=== PATIENT | male | born 1960 | race Caucasian/White ===

== ENCOUNTER → 2017-06-21 16:10 | Outpatient (CLI) | payer OTHER, SELFPAY ==
--- NOTE | 2017-06-21 16:14 | US_ITS ---
STUDY: RENAL ULTRASOUND - COMPLETE REASON FOR EXAM: Male, 56 years old. Proteinuria. TECHNIQUE: Ultrasound evaluation of the kidneys was performed with real-time and static muller-scale imaging. COMPARISON: None. FINDINGS: RIGHT KIDNEY: Normal location of the right kidney, which is normal in size. The right kidney measures 11.7 cm x 6 cm x 6.8 cm. There is a normal cortex of the right kidney. The renal cortex measures 2.0 cm. There is a 3 cm x 2.5 cm x 2.7 cm cyst. There are no right renal calculi. There is no right hydronephrosis. DISTAL RIGHT URETER: There is non-visualization of the distal right ureter. There is no demonstrated right ureterovesical junction calculus. There is a visualized right ureteral jet. LEFT KIDNEY: Normal location of the left kidney, which is normal in size. The left kidney measures 12.1 cm x 6.1 cm x 5.6 cm. There is a normal cortex of the left kidney. The renal cortex measures 1.8 cm. There is no left renal mass or cyst. There are no left renal calculi. There is no left hydronephrosis. DISTAL LEFT URETER: There is non-visualization of the distal left ureter. There is no demonstrated left ureterovesical junction calculus. There is a visualized left ureteral jet. BLADDER: The distended urinary bladder has a volume of 500 ml. The empty urinary bladder has a volume of 9.9 ml. There is a normal wall thickness of the distended urinary bladder. There is no demonstrated mass within the urinary bladder. There are no demonstrated bladder calculi. US/Kidney and Bladder IMPRESSION: Right renal cyst. Electronically Signed: Corey Arevalo MD at 9:21 EDT Tel [phone], Service support ,
== END ==
PROVIDERS: Family Provider Family Medicine; PCP Family Medicine; Visit Provider Family Medicine
DX: R80.9 Proteinuria, unspecified (principal)
CPT/HCPCS: 76770

== ENCOUNTER → 2017-11-28 09:00 | Outpatient (CLI) | payer OTHER, SELFPAY ==
--- NOTE | 2017-11-28 09:15 | RAD_ITS ---
STUDY: AIR-CONTRAST UPPER GI SERIES. REASON FOR EXAM: Male, 57 years old. Burning sensation and pressure in the epigastric region following ingestion of food. FLUOROSCOPY TIME (if supplied): (1:20) minutes/seconds. 32 spot images were obtained. TECHNIQUE: The patient ingested barium. Multiple images of the esophagus, stomach and duodenum were obtained. COMPARISON: None. FINDINGS: The esophagus is unremarkable. There is no evidence of a obstruction. No mass lesion is seen. There is no evidence of gastroesophageal reflux. The stomach and duodenum are unremarkable. There is no evidence of ulceration. No mass lesion is present. RAD/Upper GI Series Only IMPRESSION: Unremarkable air contrast upper GI series. Electronically Signed: Corey Arevalo MD at 11:16 EDT Tel [phone], Service support ,
== END ==
PROVIDERS: Family Provider Family Medicine; PCP Family Medicine; Referring Provider Family Medicine; Visit Provider Family Medicine
DX: R10.9 Unspecified abdominal pain (principal)
CPT/HCPCS: 74246

== ENCOUNTER → 2017-11-30 08:15 | Outpatient (CLI) | payer OTHER, SELFPAY ==
--- NOTE | 2017-11-30 08:19 | US_ITS ---
STUDY: ABDOMINAL ULTRASOUND - RIGHT UPPER QUADRANT REASON FOR VISIT: Male, 57 years old. Abdominal pain. TECHNIQUE: Ultrasound evaluation of the right upper quadrant was performed with real-time and static parish-scale imaging. TECHNICAL QUALITY: Adequate. COMPARISON: None. FINDINGS: Liver: The liver measures 15.8 cm. There is normal echogenicity of the liver. The bile ducts are within normal limits. There is hepatic color flow. The direction of portal flow is hepatopetal. There is no demonstrated mass lesion. Gallbladder: Normal distended gallbladder. The gallbladder wall measures 2.8 mm. There is a negative sonographic Munroe's sign. There is no pericholecystic fluid. There are no gallstones. Common Bile Duct (C.B.D.): The common bile duct measures 4.8 mm. Pancreas: Normal size of the head, body and tail of the pancreas. There is normal echogenicity of the pancreas. There is no demonstrated pancreatic mass or cyst. Right Kidney: Normal size of the right kidney. The right kidney measures 12.3 cm. Normal renal cortex. The right cortex measures 1.8 cm. There is a 3 cm cyst. There is no right hydronephrosis. US/Gallbladder IMPRESSION: Normal right upper quadrant ultrasound examination. Electronically Signed: Tunde Miller MD at 17:10 EDT , Service support ,
== END ==
PROVIDERS: Family Provider Family Medicine; PCP Family Medicine; Referring Provider Family Medicine; Visit Provider Family Medicine
DX: R10.9 Unspecified abdominal pain (principal)
CPT/HCPCS: 76705

== ENCOUNTER → 2017-12-24 10:16 | Outpatient (CLI) | payer OTHER, SELFPAY ==
--- NOTE | 2017-12-24 10:19 | NM_ITS ---
CLINICAL: 57-year-old male with reported history of abdominal pain. RADIONUCLIDE HEPATOBILIARY SCINTIGRAPHY COMPARISON: Abdominal ultrasound report 11/30/2017 FINDINGS: Following the intravenous administration of 5.4 mCi of 99m Tc Mebrofenin, hepatobiliary images reveal: 1. Relatively prompt and homogeneous radiopharmaceutical concentration is noted by a normal sized liver. No parenchymal defects are identified. 2. Gallbladder activity is identified at 15 minutes post radiopharmaceutical administration. 3. Small intestinal tract is not visualized during 60 minutes of pre-fatty meal sequential and image acquisition. Small bowel is defined following meal ingestion. 4. Washout of the radiopharmaceutical by the hepatic parenchyma appears qualitatively normal. The patient was administered a fatty meal (8 ounces Boost). The post fatty meal ingestion gallbladder ejection fraction calculated at 60 minutes following fatty meal administration was noted to be 35.0 % (normal greater than 30%). Duodenal-gastric reflux is demonstrated following the administration of the fatty meal. NM/Hepatobilliary Img w/Pharm Int IMPRESSION: 1. A gallbladder ejection fraction calculated to be greater than 30% following the administration of an ingested fatty meal makes the probability of functional hepatobiliary disease (gallbladder and/or sphincter of Oddi dyskinesia) and/or organic hepatobiliary disease (chronic acalculous cholecystitis and/or cystic duct syndrome) to be low. (Damion and Joey, J Nucl Med 43: 1603, 2002). 2. There is scintigraphic evidence of post fatty meal duodenal gastric reflux. Electronically Signed: Brayden Dubose DO at 23:42 EDT Tel , Service support ,
== END ==
PROVIDERS: Family Provider Family Medicine; PCP Family Medicine; Referring Provider Family Medicine; Visit Provider Family Medicine
DX: R10.9 Unspecified abdominal pain (principal)
CPT/HCPCS: 78227; A9537

== ENCOUNTER → 2018-01-11 06:58 | Outpatient (CLI) | payer OTHER, SELFPAY ==
--- NOTE | 2018-01-11 07:02 | CT_ITS ---
STUDY: CT ABDOMEN WITH CONTRAST REASON FOR EXAM: Male, 57 years old. Mid abdominal pain RADIATION DOSAGE (If Supplied By Facility): CTDIvol = ( 19.98 ) mGy, DLP = ( 844.69 ) mGycm TECHNIQUE: Transaxial images were obtained post I.V. administration of 100cc ml of Isovue 300 contrast, and oral contrast. Sagittal and coronal images were reconstructed. Individualized dose optimization techniques were used for this CT. COMPARISON: None. FINDINGS: The visualized lung bases are unremarkable. The visualized portions of the heart are within normal limits. Multiple liver cysts are noted the largest measures 1.3 cm. Normal gallbladder and extrahepatic biliary system. Normal spleen. Normal pancreas. Normal bilateral adrenal glands. There is a cyst in the right kidney measures 2.8 cm. Normal left kidney. Normal visualized stomach. Normal small intestine. Normal colon. The appendix is visualized and appears normal. Normal abdominal aorta. Normal inferior vena cava. Normal retroperitoneum. Normal abdominal wall. Multiple lytic lesions are seen in the lumbar spine the largest is at L3 measures approximately 2.8 cm suggesting multiple myeloma. CT/Abdomen WITH IV Contrast IMPRESSION: Multiple lytic lesions are seen in the lumbar spine the largest is at L3 measures approximately 2.8 cm suggesting multiple myeloma. N.B. : DAVE feldman, confirmed on 01/14/2018 23:23:58 (ET) that the referring physician received the results and did not require a verbal consultation. Electronically Signed: Tja Allen MD at 7:35 EST Tel , Service support ,
== END ==
PROVIDERS: Family Provider Family Medicine; PCP Family Medicine; Referring Provider Internal Medicine Gastroenterology; Visit Provider Internal Medicine Gastroenterology
DX: R10.9 Unspecified abdominal pain (principal)
CPT/HCPCS: 74160; Q9967

== ENCOUNTER → 2018-01-18 09:44 | Outpatient (CLI) | payer OTHER, SELFPAY ==
--- NOTE | 2018-01-18 10:45 | MRI_ITS ---
STUDY: MRI THORACIC SPINE WITH AND WITHOUT CONTRAST REASON FOR EXAM: Male, 57 years old. Abnormal findings on CT scan. The patient is complaining of right upper quadrant pain. On the CT abdomen and pelvis 01/11/2018, multiple lytic lesions were observed in the lumbar spine, the largest at the L3 level measuring 2.8 cm. TECHNIQUE: 10 ml of Gadavist was administered intravenously for the contrast portion of the examination. COMPARISON: None. FINDINGS: On review of CT abdomen dated 01/11/2018, lucent lesions are observed in the T12 and L3 vertebral bodies. These lesions exhibit lucency surrounding coarsened corduroy trabeculations, most characteristic of hemangioma. However, the lesion at L3 exhibited thinning and erosion of the posterior cortical wall of the vertebral body, and a focus of thinning and erosion of the inferior endplate. There is a tiny punched-out lucency at the base of the pedicle, left side, T8, another similar small punched-out focus at the base of the pedicle on the right at T11, and a punctate lucency within the pedicle and facet on the left at L1. A few tiny punched-out lucencies were also seen in the left-sided lower ribs, quite indistinct. A small punched-out lucency was also present in the left lateral aspect of the vertebral body at L5. On review of the MR lumbar spine performed today, there are corresponding enhancing lesions within the superior endplate of L5, within the largest lesion of L3, and the smaller lesion of L1. Consistent with malignancy. MRI THORACIC SPINE: Thoracic vertebral body height and alignment are normal. Slight scoliosis. Mild kyphosis of the upper thoracic spine. Minimal disc degenerative features. The paraspinous muscles appear normal. Prevertebral soft tissues appear normal. Evaluated portions of the mediastinum appear normal. Evaluated portions of the lungs are grossly clear. Spinal canal: Beginning at the level of T3 and extending to the level of T6, there is an enhancing extradural extra-axial mass lying posterior to the thecal sac against the posterior and left lateral mejias of the spinal canal. The mass measures up to 8.8 cm craniocaudal, 1.1 cm anterior-posterior, and 1.8 cm transverse. The mass contributes to moderate narrowing of the spinal canal, mildly compressing the thecal sac and displacing the thecal sac anteriorly. The mass surrounds the exiting nerve roots of the foramina partially at T3-T4, completely at C4-C5, partially at T5-T6. Posterior elements: There is extensive enhancement within the pedicles, lamina and spinous process at T4. There is enhancement of the tip of the T2 and T3 spinous processes, small areas of enhancement within the right T3 lamina and left T2 lamina. There is patchy enhancement within the pedicles and lamina and spinous process at T5, T6. There is patchy enhancement within the lamina and spinous processes at each level between T6 and T12. Vertebral bodies: There is diffuse abnormal enhancement throughout the T4, T5 and T6 vertebral bodies consistent with malignancy. There is mild patchy enhancement within the vertebral bodies including T1, T2, T3, and T7-T9. There is mild diffuse enhancement within the T10 vertebral body and involving the T10 pedicles, and lamina. There is a lytic lesion within T12 with a greatest dimension of approximately 2.2 x 2.5 x 2.6 cm containing coarsened trabeculations, partially eroding the posterior cortical wall and a small focus of the inferior endplate, exhibiting T1 hypointensity, T2 hyperintensity, and postcontrast enhancement. This is also consistent with malignancy but may be superimposed upon an underlying hemangioma. Thecal sac: There is no apparent edema or enhancement within the thecal sac. No apparent edema or enhancement of the thoracic spinal cord. Intervertebral discs: There is no abnormal edema or enhancement of the intervertebral disc spaces. There are only minimal disc degenerative features. MRI/Spine Thoracic W/WO Contrast IMPRESSION: 1. Enhancing mass along the posterior margin of the spinal canal, extra-axial, extradural, between T3 and T6, contributing to moderate spinal canal stenosis, effacing the paraspinal fluid within the thecal sac and effacing the thoracic cord at these levels. No evidence of cord myelopathy or intrathecal malignancy. 2. The mass of the spinal canal surrounds the exiting nerve roots into the foramina at each level, most prominently at T4-T5. The process also involves the proximal right rib and transverse process at T4. 3. Extensive malignancy involving the majority of the thoracic vertebral bodies and multiple levels of the posterior endplates. Electronically Signed: Brayden Tatum, at 13:05 EST Tel , Service support ,
--- NOTE | 2018-01-18 11:30 | MRI_ITS ---
STUDY: MRI LUMBAR SPINE WITH AND WITHOUT CONTRAST REASON FOR EXAM: Male, 57 years old. Abnormal findings on CT scan. Right upper quadrant pain. Suspected lumbar spinal malignancy. Extensive neoplasia identified in the MRI thoracic spine today. TECHNIQUE: Standardized fat and water weighted pulse sequences were obtained in the sagittal and axial planes. 10 ml of Gadavist contrast material was administered for the contrast portion of the examination. COMPARISON: None FINDINGS: Overview: Limited evaluation of the retroperitoneal and abdominal contents reveals no acute abnormalities. The psoas and paraspinous muscles are normal. Spinal canal and thecal sac contents including the conus medullaris and cauda equina appear normal from T11 through S2. Vertebral body height and alignment are normal with slight scoliosis and preserved lordosis. There is mild disc narrowing with disc degenerative signal at each level between T12 and L4, with no significant disc bulging. There is no apparent spinal canal or foraminal stenosis of the lumbar spine. There is mild multilevel lumbar facet arthropathy slightly more notable at L4-L5 and L3-L4. Vertebral bodies: T12, T2 hyperintense, T1 hypointense, diffusely enhancing coarsely trabeculated lytic lesion measuring up to 2.8 cm anterior-posterior, 1.9 cm craniocaudal. L3, T2 hyperintense, T1 hypointense diffusely enhancing coarsely trabeculated lytic lesion measuring up to 3 cm anterior-posterior, 4 cm transverse, and 3.1 cm anterior-posterior. There is further edema and enhancement at the margins of this lesion extending into the superior endplate. Patchy edema and enhancement within the pedicles at T12. Patchy edema and enhancement within the lamina and spinous process and left pedicle at T12. Lytic enhancing lesion within the pedicle and lamina on the left at L1. Edema and enhancement within the right-sided pedicle and lamina at L3. Minimal patchy edema and enhancement scattered within the body of L4. Oval region of edema and enhancement within the right anterior aspect of the superior half of the L5 vertebral body. Intervertebral discs: There is edema and enhancement centrally within the intervertebral disc, and of the superior aspect of the annulus, at L3-L4. MRI/Spine Lumbar W/WO Contrast IMPRESSION: Multilevel lesions with edema and enhancement of the vertebral bodies and posterior elements as described in detail above, in addition to edema and enhancement within the vertebral disc at L3-L4, consistent with malignancy. Mild lumbar spondylosis without stenosis. N.B. : The above information has been verbally conveyed by Brayden Tatum to KEVIN Jorgensen, on 01/18/2018 13:24:24 (ET). Electronically Signed: Brayden Tatum, at 13:15 EST Tel , Service support ,
== END ==
PROVIDERS: Family Provider Family Medicine; PCP Family Medicine; Referring Provider Internal Medicine Gastroenterology; Visit Provider Internal Medicine Gastroenterology
DX: M54.9 Dorsalgia, unspecified (principal); R93.89 Abnormal findings on diagnostic imaging of other specified body structures
CPT/HCPCS: 72157; 72158; A9585

== ENCOUNTER 2018-03-18 16:06 | Emergency (ER) | payer OTHER, SELFPAY ==
[2018-03-18 16:07] VITALS: BP 166/96; PULSE 87; RESP 17; TEMP 36.7; O2SAT 98; BMI 31.4
--- NOTE | 2018-03-18 16:29 | RAD_ITS ---
STUDY: X-RAY - UNILATERAL RIBS ( LEFT ) WITH CHEST REASON FOR EXAM: Male, 57 years old. Left-sided posterior rib pain The spine. History of multiple myeloma with radiation treatment one week ago. TECHNIQUE - RIBS: 4 view(s) of the ribs. TECHNIQUE - CHEST: PA chest COMPARISON: None. FINDINGS - RIBS: Normal visualized ribs without a demonstrated fracture. FINDINGS - CHEST: The lungs are clear and expanded. There is no demonstrated pleural abnormality. Normal size heart. Normal mediastinum and yessy. Normal visualized pulmonary arteries. Normal visualized aortic arch and descending thoracic aorta. Normal visualized thoracic spine. Normal visualized ribs, clavicles, and shoulders. There is no demonstrated abnormality of the visualized soft tissue structures of the upper abdomen. RAD/Ribs Uni Min 3V w/PA Chest IMPRESSION: RIBS: Normal x-ray examination of the ribs. CHEST: Normal x-ray examination of the chest. Electronically Signed: Brayden Tatum MD at 17:27 EST Tel , Service support ,
--- NOTE | 2018-03-18 16:29 | RAD_ITS ---
STUDY: X-RAY - LUMBAR SPINE REASON FOR EXAM: Male, 57 years old. Fall, lower back pain, history of multiple myeloma with radiation treatment one week ago. TECHNIQUE: 3 view(s) of the lumbar spine were obtained. COMPARISON: None FINDINGS: Slight scoliosis. Normal lumbar vertebral body height and alignment. Mild disc degenerative features are present at T12-L4. Normal appearance of the posterior elements. No visible lytic or blastic lesions. No acute intra-abdominal process is evident. RAD/Lumbar Spine 2 or 3 Views IMPRESSION: Mild scoliosis and mild spondylosis of the lumbar spine. No acute process is evident. Electronically Signed: Baryden Tatum MD at 17:26 EST Tel , Service support ,
--- NOTE | 2018-03-18 16:29 | RAD_ITS ---
STUDY: X-RAY - THORACIC SPINE REASON FOR EXAM: Male, 57 years old. Back pain, left-sided rib pain, history of multiple myeloma, radiation treatment one week ago. TECHNIQUE: 3 view(s) of the thoracic spine were obtained. COMPARISON: None. FINDINGS: Mild scoliosis. Normal vertebral body height and alignment. Minimal spondylosis. No visible lytic lesions. Normal cardiomediastinal silhouette. Evaluated portions of the lungs are clear. RAD/Thoracic Spine 3 Views IMPRESSION: Mild scoliosis, minimal spondylosis of the thoracic spine. Electronically Signed: Brayden Tatum MD at 17:25 EST Tel , Service support ,
--- NOTE | 2018-03-18 16:31 | ED.VISSUMM ---
- ER Visit Summary Date of Service: 03/18/18 Chief Complaint: Fall History of Present Illness: The patient is a 57 M presenting after fall. Patient states he slipped on ice and fell this morning. He states he twisted when he fell and landed on his right side. He initially felt okay and then later started having back spasms. He complains of right ankle pain. He has been able to ambulate with pain. He took ibuprofen prior to arrival. He did not hit his head or lose consciousness. He has a history of multiple myeloma and is undergoing radiation to his spine. He called his oncologist who advised him to come to the ED for x-rays. Physical Examination: Vitals are stable. Patient is afebrile. Alert no acute distress. HEENT exam is unremarkable. Neck is nontender Lungs are clear and equal bilaterally. Heart is regular rate and rhythm. Abdomen is soft nontender nondistended. Back: No midline tenderness, left paraspinal thoracic muscle tenderness Extremities right ankle swelling with diffuse tenderness. No fifth metatarsal tenderness. No proximal fibula tenderness. Skin is warm and dry. No focal neurologic deficit. Remainder of exam is unremarkable. Emergency Department Course and Treatment: Patient was given Valium p.o. Thoracic and lumbar x-ray shows no acute process. Right ankle x-ray shows no acute process. X-ray of the left ribs shows no acute process. Patient feels much improved in the ED. He was given incentive spirometer. He is given a prescription for Flexeril. Advised to follow-up with his primary care physician. Advised return to ED if worsening complaints. Disposition: Discharge home Impression: Status post mechanical fall, thoracic strain, right ankle sprain This note was generated with [employer] dictation software. It may contain incorrect words, spelling, and punctuation that were not noted in review of the chart prior to signing ED Disposition - Plan for ED Patient: Disposition: Home or Assisted Living Chief Complaint: Fall Instructions: ED Mechanical Fall Prescriptions: Cyclobenzaprine [Flexeril] 10 mg PO TID PRN #20 tablet PRN Reason: Muscle Spasm Referrals: Leonides Alvarado MD [Primary Care Provider] -
[2018-03-18] MEDS: diazePAM 5 MG Tablet PO (16:34)
--- NOTE | 2018-03-18 16:45 | RAD_ITS ---
STUDY: X-RAY - RIGHT ANKLE REASON FOR EXAM: Male, 57 years old. Fall, right ankle pain. History of multiple myeloma. TECHNIQUE: 3 view(s) of the ankle. COMPARISON: None. FINDINGS: Lateral ankle soft tissue swelling. No fracture or degenerative features. RAD/Ankle min 3 Views IMPRESSION: Lateral ankle soft tissue injury with no visible fracture. Electronically Signed: Bradyen Tatum MD at 17:24 EST Tel , Service support ,
--- NOTE | 2018-03-18 18:00 | ED.DEP ---
ED Disposition - Plan for ED Patient: Chief Complaint: Fall Instructions: ED Mechanical Fall Prescriptions: Cyclobenzaprine [Flexeril] 10 mg PO TID PRN #20 tablet PRN Reason: Muscle Spasm Referrals: Leonides Alvarado MD [Primary Care Provider] -
[2018-03-18 18:18] VITALS: BP 166/86; PULSE 85; RESP 17; O2SAT 99
== END 2018-03-18 18:21 | disposition home or self-care (01) ==
PROVIDERS: Emergency Provider Emergency Medicine; Family Provider Family Medicine; PCP Family Medicine
DX: S29.012A Strain of muscle and tendon of back wall of thorax, initial encounter (principal); S93.401A Sprain of unspecified ligament of right ankle, initial encounter; W00.0XXA Fall on same level due to ice and snow, initial encounter; Y92.9 Unspecified place or not applicable; Y99.9 Unspecified external cause status; C90.00 Multiple myeloma not having achieved remission
CPT/HCPCS: 71101; 72072; 72100; 73610; 99282

== ENCOUNTER 2018-05-06 23:08 | Emergency (ER) | payer OTHER, SELFPAY ==
[2018-05-06 23:10] VITALS: BP 129/74; PULSE 119; RESP 20; TEMP 38.2; O2SAT 95; BMI 34.0
--- NOTE | 2018-05-06 23:46 | EKG12_ITS ---
Test Reason : FEVER Blood Pressure : / mmHG Vent. Rate : 108 BPM Atrial Rate : 108 BPM P-R Int : 170 ms QRS Dur : 088 ms QT Int : 328 ms P-R-T Axes : 028 -07 037 degrees QTc Int : 439 ms Sinus tachycardia Minimal voltage criteria for LVH, may be normal variant Borderline ECG Confirmed by IVANIA HERNÁNDEZ ([id number]), editor publications GILBERT HOOK ([id number]) on 05/10/2018 1:24:23 PM Referred By: MARK Confirmed By:IVANIA HERNÁNDEZ
--- NOTE | 2018-05-06 23:52 | ED.RN ---
NO OLD EKGS IN MUSE
--- NOTE | 2018-05-07 | RAD_ITS ---
STUDY: X-RAY CHEST REASON FOR EXAM: Male, 57 years old. Fever and cough with multiple myeloma TECHNIQUE: Frontal and lateral views of the chest. COMPARISON: 03/18/2018 FINDINGS: Chronic interstitial lung changes without superimposed acute alveolar disease. Bibasilar atelectasis. There is no demonstrated pleural abnormality. Stable cardiomediastinal silhouette. Normal mediastinum and yessy. Normal visualized pulmonary arteries. Normal visualized aortic arch and descending thoracic aorta. Normal visualized thoracic spine. Normal visualized ribs, clavicles, and shoulders. There is no demonstrated abnormality of the visualized soft tissue structures of the upper abdomen. RAD/Chest PA and Lateral IMPRESSION: Chronic interstitial lung changes without superimposed acute alveolar disease. Bibasilar atelectasis. Electronically Signed: Moises Murdock MD at 0:54 EST Tel , Service support ,
[2018-05-07] MEDS: 0.9% Normal Saline 1,000 ML 150 ML IV (00:06)
[2018-05-07 00:09] VITALS: TEMP 37.3
[2018-05-07 00:21] LABS: Absolute Lymphocyte Count 2.83 X10^3/ul (0.83-4.51); Absolute Neutrophil Count 8.8 X10^3/uL (2.0-7.7); Basophil# 0.02 X10^3/uL; Basophil% 0.2 % (0-1); Eosinophil# 0.09 X10^3/uL; Eosinophils% 0.7 % (0-5); Hematocrit 38.9 % (40-54); Hemoglobin 12.6 g/dl (13.0-16.5); Lymphocyte # 2.83 X10^3/ul (4.0); Lymphocyte % 22.1 % (19-41); Mean Corp Hgb Conc 32.4 g/gl (32-36); Mean Corpuscular Hgb 29.9 pg (27.0-32.0); Mean Corpuscular Volume 92.4 fL (80-94); Mean Platelet Vol. 11.9 fl (6.2-12.0); Monocyte# 1.04 X10^3/uL; Monocyte% 8.1 % (0-10); Neutrophil # 8.76 X10^3/uL (2.7-7.7); Neutrophil % 68.6 % (47-70); Platelet Count 192 K/mm3 (150-450); RBC Distribution Width CV 14.9 % (11.6-14.6); RBC Distribution Width SD 50.6 fl (35.1-43.9); Red Blood Count 4.21 M/mm3 (4.6-6.2); White Blood Count 12.8 K/mm3 (4.4-11.0)
[2018-05-07 00:24] LABS: Differential Indicated SCAN CRITERIA MET; POSITIVE COUNT NO; POSITIVE DIFFERENTIAL NO; POSITIVE MORPHOLOGY YES
[2018-05-07 00:30] LABS: ALB/GLOB Ratio 1.1 RATIO (0.9-2.4); AST(SGOT) 27 U/L (15-37); Alanine Aminotransfer ALT/SGPT 57 U/L (16-61); Albumin, Serum 3.5 g/dL (3.2-5.0); Alkaline Phosphatase 90 U/L (45-117); Anion Gap 8 (5-15); BUN 14 mg/dL (7-18); BUN/Creat Ratio 14.6 RATIO (10-20); Calcium,Total 8.3 mg/dL (8.5-10.1); Chloride 102 mmol/L (98-107); Creatinine, Serum 0.96 mg/dL (0.70-1.30); EST Glomerular Filtration Rate 86 mL/min (>60); Est Glom Filt Rate - Afr Amer 104 mL/min (>60); Estimated Creatinine Clearance 98.71 ml/min; Globulin 3.1 g/dL (2.2-4.2); Glucose 111 mg/dL (74-106); Potassium 3.8 mmol/L (3.5-5.1); Protein, Total 6.6 g/dL (6.4-8.2); Sodium Level 136 mmol/L (136-145)
[2018-05-07 00:47] VITALS: BP 134/80; PULSE 105; RESP 18; TEMP 37.3; O2SAT 94
[2018-05-07 00:56] LABS: White Blood Cells 0 SEEN /hpf (0-5)
[2018-05-07 00:57] LABS: Reactive Lymphocyte 2+
--- NOTE | 2018-05-07 00:57 | ED.DCSUM_ITS ---
History of Present Illness Chief Complaint: Fever Informant: Patient Onset: Today Context: Gradual Onset Timing: Continuous Quality: 101 at home Current Severity: Moderate Maximum Severity: Moderate Worsened by: n/a Relieved by: n/a Associated Symptoms: mildly productive cough Narrative: Patient has had 2 chemotherapy treatments for multiple myeloma, his last treatment was around 3 days ago, he is also on oral chemotherapy daily at home. He developed a cough yesterday and a fever today. He called his oncologist and he was advised to come to the local ER for cultures. He sees an oncologist at [facility]. Other than mild malaise, he has no other symptoms. - Past Medical History (1) Multiple myeloma Status: Chronic Past Medical History - Allergies and Home Meds Allergies/Adverse Reactions: Allergies No Known Allergies Allergy (Verified 05/06/18 23:10) Primary Care Physician: Dr. Analisa [Other] Leonides Alvarado MD [Primary Care Provider] - Lives: Spouse/ Significant Other Smoking Status: Never smoker Review of Systems General: Reports: Fever, Malaise Eyes: Denies: Visual changes - bilaterally, Diplopia ENT: Denies: Rhinorrhea, Sore throat Cardiovascular: Denies: Chest pain, Palpitations Respiratory: Reports: Cough, Sputum. Denies: Dyspnea, Dyspnea on exertion Gastrointestinal: Denies: Abdominal pain, Nausea, Vomiting, Diarrhea, Melena, Hematochezia Genitourinary: Denies: Dysuria, Hematuria, Frequency Musculoskeletal: Reports: Back pain. Denies: Extremity Pain Skin: Reports: Rash - Asymptomatic red rash both legs 2-3 days. Denies: Wounds Neurological: Denies: Headache, Weakness, Numbness Physical Exam Vital Signs/Narrative: Vital Signs Temp Pulse Resp BP Pulse Ox 05/07/18 00:47 99.2 F H 105 H 18 134/80 H 94 05/07/18 00:09 99.2 F H 05/06/18 23:10 100.7 F H 119 H 20 H 129/74 H 95 Inital Vital Signs reviewed: Yes General: Well nourished, Well developed, No Acute Distress Head: Normocephalic, Atraumatic Eyes: Perrl, EOMI, - - Clear sclera ENT: Moist mucous membranes, No rhinorrhea Neck: Supple, Nontender Cardiovascular: Regular rate, Regular rhythm, No murmurs Respiratory: No distress, CTA bilaterally, Chest nontender Abdomen: Soft, Nontender, Nondistended, Normal bowel sounds Back: Nontender, Normal Inspection Extremities: Nontender, No edema Skin: Normal color, Rash - Petechial rash bilateral lower legs, not including feet. No other rashes or areas of petechiae. Neurological: Alert, Oriented x3, Cranial nerves II-XII grossly intact, Normal Strength, Normal Sensation Psychological: Normal affect, Normal Mood Diagnostic/Tx/Re-eval Impressions Chest X-Ray 05/07/18 00:00 IMPRESSION: Chronic interstitial lung changes without superimposed acute alveolar disease. Bibasilar atelectasis. Electronically Signed: Moises Murdock MD at 0:54 EST Tel , Service support , 05/07/18 00:00 Chest PA and Lateral [RAD] Stat 05/07/18 01:20 Mucosa - Nasopharyngeal Influenza Types A,B Direct FA ([place]) - Final -- NEGATIVE Laboratory Results 05/07/18 05/07/18 05/07/18 00:05 00:05 00:50 WBC 12.8 H RBC 4.21 L Hgb 12.6 L Hct 38.9 L MCV 92.4 MCH 29.9 MCHC 32.4 RDW 14.9 H RDW Differential 50.6 H Plt Count 192 MPV 11.9 Immature Gran % (Auto) 0.300 Neut % (Auto) 68.6 Lymph % (Auto) 22.1 [place] % (Auto) 8.1 Eos % (Auto) 0.7 Baso % (Auto) 0.2 Absolute Neuts (auto) 8.8 H Absolute Lymphs (auto) 2.83 Total Counted Not Reportable Reactive Lymphocytes 2+ Sodium 136 Potassium 3.8 Chloride 102 Carbon Dioxide 26.0 Anion Gap 8 BUN 14 Creatinine 0.96 Estim Creat Clear Calc 98.71 Est GFR (MDRD) Af Amer 104 Est GFR (MDRD) Non-Af 86 BUN/Creatinine Ratio 14.6 Glucose 111 H Calcium 8.3 L Total Bilirubin 0.90 AST 27 ALT 57 Alkaline Phosphatase 90 Total Protein 6.6 Albumin 3.5 Globulin 3.1 Albumin/Globulin Ratio 1.1 Urine Color Yellow Urine Clarity Clear Urine pH 6.0 Ur Specific [place] 1.015 Urine Protein Negative Urine Glucose (UA) Normal Urine Ketones Negative Urine Occult Blood 10 H Urine Nitrite Negative Urine Bilirubin Negative Urine Urobilinogen Normal Ur Leukocyte Esterase Negative Urine RBC 0-5 SEEN Urine WBC 0 SEEN Ur Squamous Epith Cells 0-5 SEEN Urine Bacteria RARE Urine Mucus 1+ - Medical Decision Making Workup shows slightly elevated white blood count with 2+ reactive lymphocytes, certainly no neutropenia. Very reassuring. The differential was actually fairly normal. Platelets are not low despite the petechiae on his legs. Unknown if these could be a side effect from his chemotherapy. He is not bleeding from anywhere, and his vital signs have been stable. Influenza is negative, chest x-ray shows no pneumonia. Given his immunocompromised state, I think it would be reasonable to put him on a broad-spectrum antibiotic such as a Z-Benjamin. Discussed with Dr. Jayne Stuart, the oncologist on-call for Dr. Hauser, his oncologist at [facility], she is in agreement with this and discharged home with close outpatient follow-up. She advises that he hold his Revlimid oral chemotherapy until he discusses w/ his oncologist tomorrow or the next day. ED Disposition - Plan for ED Patient: Disposition: Home or Assisted Living Diagnosis: Acute bronchitis, Immunocompromised state Instructions: Acute Bronchitis Prescriptions: Azithromycin 250 mg PO DAILY #4 tab Referrals: Leonides Alvarado MD [Primary Care Provider] - Dr. Analisa [Other] (Call tomorrow to discuss further treatment this week) Additional Instructions: Discontinue your Revlimid until you discuss with your oncologist this week.
[2018-05-07 00:58] LABS: Color, Urine Yellow (Yellow); Glucose, Dipstick Normal (Normal); Ketone-Dipstick Negative (Negative); Leukocyte Esterase-Dipstick Negative /ul (Negative); Nitrite-Dipstick Negative (Negative); Occult Blood-Urine 10 /ul (Negative); Protein-Dipstick Negative (Negative); Specific Gravity, Urine 1.015 (1.002-1.030); Urine Bilirubin Dipstick Negative (Negative); Urine Clarity Clear (Clear); Urine Urobilinogen Normal (Normal)
[2018-05-07 01:07] LABS: Bacteria RARE /hpf (None Seen); Mucous, Urine 1+ /hpf (<or=2+); Red Blood Cells-Urine 0-5 SEEN /hpf (0-5); Squamous Epithelial Cells - UA 0-5 SEEN /hpf (0-5)
[2018-05-07] MEDS: Acetaminophen 325 MG Tablet 650 MG PO (01:24)
--- NOTE | 2018-05-07 02:10 | ED.RN ---
Dr. Funes states pt is removed from neutropenic precautions. instructional support specialist notified.
--- NOTE | 2018-05-07 03:02 | ED.RN ---
CALLED [facility] PER REQUEST OF DR FLORES TO CHECK THE STATUS OF A CALL BACK. PER [facility], THEY HAVE PAGED THE IMPORT MANAGER SEVERAL TIMES AND ARE STILL WAITING ON A CALL BACK.
[2018-05-07] MEDS: Azithromycin 250 MG Tablet 500 MG PO (03:24)
[2018-05-07 03:30] VITALS: BP 117/72; PULSE 91; RESP 18; TEMP 36.9; O2SAT 95
== END 2018-05-07 03:32 | disposition home or self-care (01) ==
PROVIDERS: Emergency Provider Emergency Medicine; Family Provider Family Medicine; PCP Family Medicine
DX: J20.9 Acute bronchitis, unspecified (principal); D89.9 Disorder involving the immune mechanism, unspecified; J98.11 Atelectasis; C90.00 Multiple myeloma not having achieved remission
CPT/HCPCS: 36415; 71046; 80053; 81001; 85025; 87040; 87086; 87804; 93005; 96360; 96361; 99284; J7030; A4216

== ENCOUNTER → 2020-09-01 12:00 | Outpatient (CLI) | payer OTHER, SELFPAY ==
[2020-09-01 05:41] VITALS: BMI 34.0
--- NOTE | 2020-09-01 12:00 | LES_PTH ---
PATIENT: HARISH LARA LOC: [facility] U#:[id number] AGE/SX: 64/M ROOM: RE09/01/[address]: Dr. Yong Joseph MD : 1960 BED: DIS: SPEC #: [id number] RECD: 09/01/20 15:12 STATUS: HERMELINDA BERNARDO #: [id number] MALCOM: 09/01/20 12:[address]: Yong Joseph DEPT: SURGICAL PATHOLOGY RECD BY: Madelyn Rios ENTERED: 09/02/20 11:28 SP TYPE: Lesion OTHR DR: Dr. Leonides Alvarado MD Tissues: Skin of forehead Procedures: Surgery Specimen Level IV HEADER OPERATION: Excision forehead lesion PRE-OP DIAGNOSIS: Skin lesion of face TISSUE SUBMITTED: Forehead tissue MICROSCOPIC DIAGNOSIS Skin lesion of forehead, excision: Benign keratosis with associated capillary hemangioma. Hyperkeratosis, parakeratosis and mild solar elastosis. No evidence of malignancy. AM:brittany 09/03/2020 COMMENT Case has been reviewed in consultation with Dr. Cardoza who concurs with the above diagnosis. IDC:SJ MICROSCOPIC DESCRIPTION Slides are reviewed. GROSS DESCRIPTION Received in fixative is one container labeled with the patient's name and designated forehead. The specimen consists of a piece of atkins-white skin ellipse measuring 3 x 1.5 cm and up to 0.4 cm in thickness. The specimen is inked, serially sectioned and submitted entirely in two cassettes. Cassette 1 also contains the tips of skin ellipse. / JAMEEL:brittany 09/02/20 TC:5 CPT: 85170
== END ==
PROVIDERS: PCP Family Medicine; Referring Provider Surgery; Visit Provider Surgery
DX: L85.9 Epidermal thickening, unspecified (principal); L57.8 Other skin changes due to chronic exposure to nonionizing radiation
CPT/HCPCS: 88305

== ENCOUNTER 2020-09-11 09:18 | Emergency (ER) | payer OTHER, SELFPAY ==
[2020-09-01 05:41] VITALS: BMI 34.0
[2020-09-11 09:20] VITALS: BP 132/78; PULSE 90; RESP 16; TEMP 36.3; O2SAT 97; BMI 31.4
--- NOTE | 2020-09-11 09:54 | VDLE_ITS ---
Reason For Study: Swelling RIGHT CFV is compressible, spontaneous, phasic, competent and demonstrates normal augmentation. FV is compressible, spontaneous, phasic, competent and demonstrates normal augmentation. POP V is compressible, spontaneous, phasic, competent and demonstrates normal augmentation. T/P Trunk is compressible. PTV is compressible. RT PerV is compressible. Acute superficial vein thrombosis is noted in the right GSV from junction to prox calf and the SSV. Thrombus in the GSV is 1.5 cm from the junction, not extending into the CFV. Thrombus filled varicose veins noted in the posterior mid calf and mid-distal thigh. Procedure This is a venous duplex using B-mode, color flow and spectral Doppler. Exam performed portable in ED. A preliminary report was called and/or faxed to [facility]. VL/Venous Duplex US, Unilateral Interpretation Summary There is no evidence of right lower extremity deep vein thrombosis. Superficial thrombophlebitis right great saphenous vein from the proximal calf to within 1.5 cm of the saphe nofemoral junction. Superficial thrombophlebitis right small saphenous vein Superficial thrombophlebitis multiple varicosities posterior mid calf and mid d istal thigh Ordering Physician: Dani Puentes Referring Physician: Leonides Alvarado Performed By: Yessenia Arias RVT
--- NOTE | 2020-09-11 09:55 | EDS_ITS ---
HPI History of Present Illness Chief Complaint: Lower Extremity Injury Detail of Chief Complaint: Swelling to right lower extremity x1 week Informant: patient Narrative Narrative: Patient presents to the emergency department with lumps to his right leg that has had for over a week. Patient tells me that he had a lesion removed from his forehead a couple weeks ago and had to discontinue his aspirin for a time. Patient has history of multiple myeloma and is on Revlimid. Patient had his sutures removed from his forehead and mentioned the bumps on his legs but they did not think they were significant. Patient denies chest pain or fernanda rtness of breath. He has no history of PE or DVT. Patient has not had any significant trauma to his leg although he states he [place] recently and may have bumped the back of his leg some point. [facility] Medical History (Updated 09/11/20 @ 11:[address] Dani Puentes, ) Benign keratosis History of atrial fibrillation Home Medications aspirin 1 tab PO DAILY 05/07/18 [History Last Taken Unknown] calcium carbonate-vitamin D3 [Calcium 600 + Vit D Tablet] 1 ea PO DAILY 05/07/18 [History Last Taken Unknown] gabapentin 1 tab PO TID 05/07/18 [History Last Taken Unknown] lenalidomide [Revlimid] 10 mg PO QHS 09/11/20 [History Last Taken Unknown] rivaroxaban [Xarelto] 20 mg PO DAILY #14 tab 09/11/20 [Rx Last Taken Unknown] Allergy/AdvReac Type Severity Reaction Status Date / Time No Known Allergies Allergy Verified 09/11/20 09:19 Surgical History History of removal of Port-a-Cath Hx of local excision of skin lesion Hx of stem cell transplant Social History Smoking Status: Never smoker ROS ROS ED Constitutional Constitutional ED: Reports systems reviewed and no addt'l complaints, except as documented; Denies body ache(s), change in weight or chills Eyes Eyes: Denies acute decrease in peripheral vision, change in vision, double vision or loss of vision ENT ENT ED: Reports none; Denies ear pain, lip swelling, loss taste/smell, neck pain, otalgia or sore throat Cardiovascular Cardiovascular: Reports none; Denies abdominal pain, chest pain with activity, leg edema, lightheadedness, palpitations, rapid heart rate or syncope Respiratory/Chest Respiratory/Chest: Reports none; Denies change in mental status, dry cough, dyspnea, hemoptysis, shortness of breath at rest or shortness of breath with exertion Gastrointestinal Gastrointestinal: Reports none; Denies abdominal pain, change in stool character, diarrhea, hematemesis, hematochezia, melena, rectal bleeding or vomiting Genitourinary Genitourinary ED: Reports none; Denies abdominal discomfort, anuria, dysuria, genital pain or polyuria Musculoskeletal Musculoskeletal: Reports none and other Details: Right leg swelling ; Denies arthralgias, back pain, difficulty walking, extremity pain, muscle weakness or myalgias Integumentary Reports none; Denies abscess or rash Neurologic Neurologic: Reports none; Denies abnormal gait, confusion, focal weakness, frequent falls, headache(s), loss of vision, numbness, paresthesias, radicular pain, vertigo or weakness Psychiatric Psychiatric: Reports systems reviewed and no addt'l complaints, except as documented and none; Denies behavioral changes, confusion, difficulty concentrating, hallucinations, suicidal ideation, tactile hallucinations or visual hallucinations Endocrine Endocrinology: Denies none, cold intolerance, excessive sweating, fatigue or heat intolerance Hematologic/Lymphatic Hematologic/Lymphatic: Reports none; Denies anemia, easy bleeding or easy bruising Allergic/Immunologic Allergic/Immunologic ED: Denies as per HPI, none, lip swelling, mouth swelling, throat swelling, tongue swelling or hives EXAM Physical Exam Const Vital Signs: 09/11/20 09:20 Temperature 97.3 F L Temperature Source Temporal Pulse Rate 90 Respiratory Rate 16 Blood Pressure 132/78 H Blood Pressure Mean 96 Pulse Ox 97 Oxygen Delivery Method Room Air Positive well nourished and well developed General Appearance ED: well developed and NAD HEENT Reports TM's clear and moist mucous membranes normocephalic and atraumatic; Negative for trauma or tenderness Tympanic Membrane ED: Yes TM's clear Eyes PERRL and EOMs intact bilaterally General Eye ED: Negative for pale conjunctiva or scleral icterus Neck no lymphadenopathy, supple and no JVD General: Negative for tenderness Chest Wall inspection of chest normal and palpation of chest normal Chest: Negative for tenderness Resp normal respiratory effort and clear to auscultation bilaterally Effort and Inspection: Negative for respiratory distress or pain with movement Auscultation: Negative for rhonchi, wheezes or diminished lung sounds Cardio regular rate, regular rhythm, S1 normal heart sound, S2 normal heart sound and no murmurs Peripheral Pulses: pulses 2+ throughout GI normal to inspection, nondistended, normoactive bowel sounds, soft to palpation, non-tender, non-distended and no masses Back/Spine no CVA tenderness and no thoracic nor lumbar tenderness Extremity normal to inspection Extremity Narrative: Right leg-patient has ropes and cords palpated in the calf as well as thigh concerning for superficial phlebitis versus DVT. No significant swelling noted to the extremity. Pulses are normal. Skin is warm to the touch. General Extremety ED: Negative for edema General Extremity: Negative for edema Neuro oriented x3, CN's II-XII intact bilaterally, no sensory deficits noted and gait normal Sensorium / Orientation: awake, alert, oriented to person, oriented to place and oriented to time Motor Exam: strength 5/5 throughout and strength abnormal Psych mental status grossly normal Skin no rashes or lesions noted and no wounds MDM MDM MDM Narrative Medical decision making narrative: Patient noted on venous Doppler to have superficial phlebitis however there is clot about a centimeter and a half away from the deep common femoral vein. I discussed case with the vascular surgeon Dr. Yousif who asked that we start patient on Xarelto and he can see him in a couple of weeks and patient to have a repeat venous ultrasound in a couple of weeks. Discharge Plan Triage Chief Complaint: Lower Extremity Injury ED Provider: Dani Puentes Dx/Rx/DC Orders Clinical Impression: Superficial thrombophlebitis of right leg Instructions: ED Thrombophlebitis, Superficial Prescriptions: New Xarelto 20 mg tablet 20 mg PO DAILY Qty: 14 RF: 0 No Action aspirin 325 MG tablet,delayed release (DR/EC) 1 tab PO DAILY RF: 0 gabapentin 300 MG capsule 1 tab PO TID RF: 0 Calcium 600 + D(3) 1 EACH tablet 1 ea PO DAILY RF: 0 Revlimid 10 mg Capsule 10 mg PO QHS RF: 0 Primary Care Provider: Leonides Alvarado Referrals: Matt Yousif MD [STAFF PHYSICIAN] - 1-2 Weeks Leonides Alvarado MD [Primary Care Provider] - Activity Restrictions/Additional Instructions: Follow-up with family physician to have ultrasound of right leg in 2 weeks and then follow-up with Disposition Disposition: Home, Self Care
[2020-09-11] MEDS: Rivaroxaban 20 MG Tablet PO (12:03)
[2020-09-11 12:06] VITALS: BP 142/81; PULSE 88; RESP 15; O2SAT 99
== END 2020-09-11 12:07 | disposition home or self-care (01) ==
PROVIDERS: Emergency Provider Emergency Medicine; PCP Family Medicine
DX: I80.01 Phlebitis and thrombophlebitis of superficial vessels of right lower extremity (principal); Z79.82 Long term (current) use of aspirin; Z79.01 Long term (current) use of anticoagulants; Z79.899 Other long term (current) drug therapy
CPT/HCPCS: 93971; 99283